=== PATIENT | male | born 1985 | race Caucasian/White ===

== ENCOUNTER 2018-05-10 08:17 | Emergency (ER) | payer OTHER ==
[~2018-05-10] VITALS: Ht 190.5 cm; Wt 95.9 kg
[2018-05-10] MEDS ORDERED: FLEXERIL PO (08:50)
[2018-05-10] MEDS ORDERED: TORADOL PO (08:50)
[2018-05-10 08:59] VITALS: BP 146/100
== END 2018-05-10 09:07 | disposition home or self-care (01) | DRG 605 ==
LOC: ED 08:17
DX: S30.0XXA Contusion of lower back and pelvis, initial encounter (principal); I10 Essential (primary) hypertension; I48.91 Unspecified atrial fibrillation; W22.8XXA Striking against or struck by other objects, initial encounter; Y92.009 Unspecified place in unspecified non-institutional (private) residence as the place of occurrence of the external cause

== ENCOUNTER 2018-05-14 06:41 | Emergency (ER) | payer OTHER ==
[~2018-05-14] VITALS: Ht 190.5 cm; Wt 95.5 kg
[~2018-05-14 06:41] MED LIST: FLEXERIL PO; TORADOL PO
[2018-05-14] MEDS ORDERED: TRAMADOL HCL50 MG PO (09:05)
[2018-05-14 09:10] VITALS: BP 140/88
== END 2018-05-14 09:15 | disposition home or self-care (01) | DRG 605 ==
LOC: ED 06:41
DX: S30.0XXA Contusion of lower back and pelvis, initial encounter (principal); I48.91 Unspecified atrial fibrillation; G89.29 Other chronic pain; M54.9 Dorsalgia, unspecified; F17.210 Nicotine dependence, cigarettes, uncomplicated; W22.8XXA Striking against or struck by other objects, initial encounter

== ENCOUNTER 2018-06-25 08:48 | Emergency (ER) | payer OTHER ==
[~2018-06-25] VITALS: Ht 190.5 cm; Wt 96.3 kg
[~2018-06-25 08:48] MED LIST changes: +TRAMADOL HCL50 MG PO
[2018-06-25 10:07] LABS: HEMATOCRIT 47.2 % (39.0-50.0); HEMOGLOBIN 15.7 g/dl (14.0-18.0); IMMATURE GRANULOCYTES 1.6 % (0.0-5.0); MEAN CELL VOLUME 89.2 fL CALC (80.0-100.0); MEAN CORPUSCULAR HGB 29.7 pG CALC (26.0-32.0); MEAN CORPUSCULAR HGB CONC 33.3 g/L CALC (32.0-36.0); NEUT# 6.46 thou/uL (1.82-7.42); RED BLOOD COUNT 5.29 mill/uL (4.70-6.10); RED CELL DISTRI WIDTH 12.9 % (11.5-15.5)
[2018-06-25 10:26] LABS: ALBUMIN 4.5 g/dL (3.2-5.0); ALKALINE PHOSPHATASE 90 u/l (38-126); ANION GAP 18 (6-22 (CALC)); BILIRUBIN, TOTAL 0.7 mg/dL (0.0-1.4); BUN 19 mg/dL (9-20); BUN/CREATININE RATIO 18 (12-20 (CALC)); CARBON DIOXIDE 23 mmol/l (22-30); CHLORIDE 107 mmol/l (95-108); GFR > 60 ML/MIN (>=60 (CALC)); GFR FOR AFR.AMER. > 60 ML/MIN (>=60 (CALC)); POTASSIUM 4.5 mmol/l (3.5-5.1); SGOT/AST 48 u/l (17-59); SGPT/ALT 125 u/l (21-72); SODIUM 143 mmol/l (137-146); TOTAL PROTEIN 7.2 g/dL (6.3-8.2)
[2018-06-25 12:54] LABS: URINE BILIRUBIN - DIPSTICK NEGATIVE (NEGATIVE); URINE BLOOD DIPSTICK NEGATIVE (NEGATIVE); URINE COLOR YELLOW; URINE GLUCOSE - DIPSTICK NEGATIVE (NEGATIVE); URINE KETONE NEGATIVE (NEGATIVE); URINE LEUK ESTERASE NEGATIVE (NEGATIVE); URINE NITRITE - DIPSTICK NEGATIVE (Negative); URINE PROTEIN - DIPSTICK NEGATIVE (NEG-TRACE); URINE SPECIFIC GRAVITY 1.025; URINE UROBILINOGEN - DIPSTICK 0.2 E.U./dL (0.2)
[2018-06-25 12:57] LABS: URINE CLARITY CLEAR
[2018-06-25 16:16] VITALS: BP 136/86
== END 2018-06-25 16:25 | disposition home or self-care (01) | DRG 392 ==
LOC: ED 08:48
PROVIDERS: Emergency Medicine
DX: R10.9 Unspecified abdominal pain (principal); I48.91 Unspecified atrial fibrillation; G89.29 Other chronic pain; M54.9 Dorsalgia, unspecified; F17.210 Nicotine dependence, cigarettes, uncomplicated; Z90.49 Acquired absence of other specified parts of digestive tract

== ENCOUNTER 2018-09-11 08:38 | Emergency (ER) | payer OTHER ==
[~2018-09-11] VITALS: Ht 190.5 cm; Wt 95.0 kg
[2018-09-11] MEDS ORDERED: DILANTIN100 MG PO (08:50)
[2018-09-11] MEDS ORDERED: METOPROL TAR25 MG PO (08:50)
[2018-09-11 09:10] VITALS: BP 157/112
[2018-09-11 09:50] LABS: HEMOGLOBIN 17.1 g/dl (14.0-18.0); IMMATURE GRANULOCYTES 1.5 % (0.0-5.0); MEAN CELL VOLUME 90.3 fL CALC (80.0-100.0); MEAN CORPUSCULAR HGB 30.3 pG CALC (26.0-32.0); MEAN CORPUSCULAR HGB CONC 33.5 g/L CALC (32.0-36.0); NEUT# 5.8 thou/uL (1.82-7.42); RED BLOOD COUNT 5.65 mill/uL (4.70-6.10); RED CELL DISTRI WIDTH 12.9 % (11.5-15.5)
[2018-09-11 09:51] LABS: ALBUMIN 4.6 g/dL (3.2-5.0); ALKALINE PHOSPHATASE 118 u/l (38-126); ANION GAP 15 (6-22 (CALC)); BILIRUBIN, TOTAL 0.8 mg/dL (0.0-1.4); BUN 14 mg/dL (9-20); BUN/CREATININE RATIO 12 (12-20 (CALC)); CARBON DIOXIDE 23 mmol/l (22-30); CHLORIDE 107 mmol/l (95-108); CREATININE 1.2 mg/dL (0.7-1.3); GFR > 60 ML/MIN (>=60 (CALC)); GFR FOR AFR.AMER. > 60 ML/MIN (>=60 (CALC)); POTASSIUM 4.3 mmol/l (3.5-5.1); SGOT/AST 75 u/l (17-59); SODIUM 140 mmol/l (137-146); TOTAL PROTEIN 8.1 g/dL (6.3-8.2)
[2018-09-11 10:02] LABS: INFLUENZA A NONE DETECTED (NONE DETECT); INFLUENZA B NONE DETECTED (NONE DETECT)
[2018-09-11] MEDS ORDERED: TESSALON PER100 MG PO (10:25)
[2018-09-11] MEDS ORDERED: MEDDOSEPAK PO (10:25)
[2018-09-11] MEDS ORDERED: ZITHROMAX250 MG PO (10:25)
== END 2018-09-11 10:40 | disposition home or self-care (01) | DRG 203 ==
LOC: ED 08:38
PROVIDERS: Emergency Medicine
DX: J40 Bronchitis, not specified as acute or chronic (principal); I48.91 Unspecified atrial fibrillation; F17.210 Nicotine dependence, cigarettes, uncomplicated

== ENCOUNTER 2018-10-19 14:02 | Emergency (ER) | payer OTHER ==
[~2018-10-19] VITALS: Ht 190.5 cm; Wt 90.9 kg
[~2018-10-19 14:02] MED LIST changes: +DILANTIN100 MG PO; +MEDDOSEPAK PO; +METOPROL TAR25 MG PO; +TESSALON PER100 MG PO; +ZITHROMAX250 MG PO
[2018-10-19 14:54] LABS: HEMATOCRIT 49.8 % (39.0-50.0); HEMOGLOBIN 16.8 g/dl (14.0-18.0); IMMATURE GRANULOCYTES 0.4 % (0.0-5.0); MEAN CELL VOLUME 89.6 fL CALC (80.0-100.0); MEAN CORPUSCULAR HGB 30.2 pG CALC (26.0-32.0); MEAN CORPUSCULAR HGB CONC 33.7 g/L CALC (32.0-36.0); NEUT# 6.76 thou/uL (1.82-7.42); RED BLOOD COUNT 5.56 mill/uL (4.70-6.10); RED CELL DISTRI WIDTH 11.6 % (11.5-15.5)
[2018-10-19 15:02] LABS: AMYLASE 69 u/l (30-110); LIPASE 41 u/l (23-300)
[2018-10-19 15:04] LABS: ALBUMIN 5.2 g/dL (3.2-5.0); ALKALINE PHOSPHATASE 124 u/l (38-126); ANION GAP 20 (6-22 (CALC)); BILIRUBIN, TOTAL 0.4 mg/dL (0.0-1.4); BUN 15 mg/dL (9-20); BUN/CREATININE RATIO 14 (12-20 (CALC)); CARBON DIOXIDE 25 mmol/l (22-30); CHLORIDE 104 mmol/l (95-108); CREATININE 1.1 mg/dL (0.7-1.3); GFR > 60 ML/MIN (>=60 (CALC)); GFR FOR AFR.AMER. > 60 ML/MIN (>=60 (CALC)); POTASSIUM 4.1 mmol/l (3.5-5.1); SGOT/AST 25 u/l (17-59); SODIUM 144 mmol/l (137-146); TOTAL PROTEIN 8.5 g/dL (6.3-8.2)
[2018-10-19 15:11] LABS: URINE BILIRUBIN - DIPSTICK NEGATIVE (NEGATIVE); URINE BLOOD DIPSTICK NEGATIVE (NEGATIVE); URINE COLOR YELLOW; URINE GLUCOSE - DIPSTICK NEGATIVE (NEGATIVE); URINE KETONE NEGATIVE (NEGATIVE); URINE LEUK ESTERASE NEGATIVE (NEGATIVE); URINE NITRITE - DIPSTICK NEGATIVE (Negative); URINE PH 5.5 (4.5-8.0); URINE PROTEIN - DIPSTICK NEGATIVE (NEG-TRACE); URINE UROBILINOGEN - DIPSTICK 0.2 E.U./dL (0.2)
[2018-10-19 15:11] LABS: PHENYTOIN (DILANTIN) 13 ug/mL (10 - 20)
[2018-10-19 15:13] LABS: MYOGLOBIN 42 ng/mL (0 - 121)
[2018-10-19 15:21] LABS: BARBITURATES POSITIVE (NEGATIVE); COCAINE NEGATIVE (NEGATIVE); METHADONE NEGATIVE (NEGATIVE); OXCYCODONE NEGATIVE (NEGATIVE); TETRAHYDROCANNABIONOL NEGATIVE (NEGATIVE); TRICYLIC ANTIDEPRESSANTS NEGATIVE (NEGATIVE)
[2018-10-19] MEDS ORDERED: ZOFRAN ODT4 MG PO (15:24)
[2018-10-19] MEDS ORDERED: NAPROSYN500 MG PO (15:27)
[2018-10-19 15:55] VITALS: BP 143/99
== END 2018-10-19 15:56 | disposition home or self-care (01) | DRG 101 ==
LOC: ED 14:02
PROVIDERS: Emergency Medicine
DX: R56.9 Unspecified convulsions (principal); R11.10 Vomiting, unspecified; Z87.820 Personal history of traumatic brain injury; W22.8XXA Striking against or struck by other objects, initial encounter; Y92.009 Unspecified place in unspecified non-institutional (private) residence as the place of occurrence of the external cause

== ENCOUNTER 2018-11-18 07:52 | Emergency (ER) | payer SELFPAY ==
[~2018-11-18] VITALS: Ht 190.5 cm; Wt 100.0 kg
[~2018-11-18 07:52] MED LIST changes: +NAPROSYN500 MG PO; +ZOFRAN ODT4 MG PO
[2018-11-18 08:37] LABS: HEMATOCRIT 47.2 % (39.0-50.0); HEMOGLOBIN 15.9 g/dl (14.0-18.0); IMMATURE GRANULOCYTES 0.4 % (0.0-5.0); MEAN CELL VOLUME 88.4 fL CALC (80.0-100.0); MEAN CORPUSCULAR HGB 29.8 pG CALC (26.0-32.0); MEAN CORPUSCULAR HGB CONC 33.7 g/L CALC (32.0-36.0); NEUT# 5.54 thou/uL (1.82-7.42); RED BLOOD COUNT 5.34 mill/uL (4.70-6.10); RED CELL DISTRI WIDTH 11.8 % (11.5-15.5)
[2018-11-18 08:37] LABS: URINE BLOOD DIPSTICK TRACE-LYSED (NEGATIVE); URINE COLOR YELLOW; URINE GLUCOSE - DIPSTICK NEGATIVE (NEGATIVE); URINE KETONE TRACE mg/dL (NEGATIVE); URINE LEUK ESTERASE NEGATIVE (NEGATIVE); URINE PROTEIN - DIPSTICK 30 mg/dL (NEG-TRACE); URINE SPECIFIC GRAVITY 1.025; URINE UROBILINOGEN - DIPSTICK 0.2 E.U./dL (0.2)
[2018-11-18 08:48] LABS: URINE BILIRUBIN - DIPSTICK NEGATIVE (NEGATIVE); URINE NITRITE - DIPSTICK NEGATIVE (Negative)
[2018-11-18 08:53] LABS: ALKALINE PHOSPHATASE 138 u/l (38-126); ANION GAP 18 (6-22 (CALC)); BILIRUBIN, TOTAL 0.5 mg/dL (0.0-1.4); BUN 21 mg/dL (9-20); BUN/CREATININE RATIO 19 (12-20 (CALC)); CARBON DIOXIDE 27 mmol/l (22-30); CHLORIDE 102 mmol/l (95-108); CREATININE 1.1 mg/dL (0.7-1.3); GFR > 60 ML/MIN (>=60 (CALC)); GFR FOR AFR.AMER. > 60 ML/MIN (>=60 (CALC)); POTASSIUM 4.9 mmol/l (3.5-5.1); SODIUM 142 mmol/l (137-146); TOTAL PROTEIN 8.1 g/dL (6.3-8.2)
[2018-11-18 08:53] LABS: URINE EPITHELIAL CELLS RARE EPI/hpf (0-FEW); URINE RBC 0-2 RBC/hpf (0-5)
[2018-11-18 08:54] LABS: URINE SPERM RARE hpf (NONE-RARE)
[2018-11-18 08:54] LABS: SGOT/AST 45 u/l (17-59)
[2018-11-18 09:01] LABS: BARBITURATES NEGATIVE (NEGATIVE); COCAINE NEGATIVE (NEGATIVE); METHADONE NEGATIVE (NEGATIVE); TETRAHYDROCANNABIONOL NEGATIVE (NEGATIVE); TRICYLIC ANTIDEPRESSANTS NEGATIVE (NEGATIVE)
[2018-11-18 09:02] LABS: OXCYCODONE NEGATIVE (NEGATIVE)
[2018-11-18] MEDS ORDERED: TORADOL PO (09:53)
[2018-11-18 10:09] VITALS: BP 144/86
== END 2018-11-18 10:19 | disposition home or self-care (01) | DRG 93 ==
LOC: ED 07:52
PROVIDERS: Emergency Medicine
DX: G89.29 Other chronic pain (principal); M53.3 Sacrococcygeal disorders, not elsewhere classified; I48.91 Unspecified atrial fibrillation; Z86.73 Personal history of transient ischemic attack (TIA), and cerebral infarction without residual deficits; Z79.891 Long term (current) use of opiate analgesic

== ENCOUNTER 2019-02-15 08:20 | Emergency (ER) | payer SELFPAY ==
[~2019-02-15] VITALS: Ht 190.5 cm; Wt 90.0 kg
[2019-02-15] MEDS ORDERED: ROBITUSSIN AC10 ML PO (09:07)
[2019-02-15] MEDS ORDERED: ZPAK PO (09:07)
[2019-02-15 09:30] VITALS: BP 138/61
== END 2019-02-15 09:34 | disposition home or self-care (01) | DRG 153 ==
LOC: ED 08:20
DX: J06.9 Acute upper respiratory infection, unspecified (principal)

== ENCOUNTER 2019-07-29 02:17 | Emergency (ER) | payer SELFPAY ==
[~2019-07-29] VITALS: Ht 190.5 cm; Wt 96.3 kg
[~2019-07-29 02:17] MED LIST changes: +ROBITUSSIN AC10 ML PO; +ZPAK PO
[2019-07-29] MEDS ORDERED: IBUPROFEN600 MG PO (03:39)
[2019-07-29 04:45] VITALS: BP 147/91
== END 2019-07-29 04:45 | disposition home or self-care (01) | DRG 605 ==
LOC: ED 02:17
DX: S30.0XXA Contusion of lower back and pelvis, initial encounter (principal); I48.91 Unspecified atrial fibrillation; M54.9 Dorsalgia, unspecified; G89.29 Other chronic pain; F17.210 Nicotine dependence, cigarettes, uncomplicated; W10.9XXA Fall (on) (from) unspecified stairs and steps, initial encounter; Y92.009 Unspecified place in unspecified non-institutional (private) residence as the place of occurrence of the external cause; Z86.73 Personal history of transient ischemic attack (TIA), and cerebral infarction without residual deficits

== ENCOUNTER 2019-10-19 03:29 | Emergency (ER) | payer SELFPAY ==
[~2019-10-19] VITALS: Ht 190.5 cm; Wt 96.0 kg
[~2019-10-19 03:29] MED LIST changes: +IBUPROFEN600 MG PO
[2019-10-19] MEDS ORDERED: KEFLEX500 M1 PO (04:59)
[2019-10-19] MEDS ORDERED: PERCOCET 5/325M1 TAB PO (04:59)
[2019-10-19 05:31] VITALS: BP 149/84
== END 2019-10-19 05:30 | disposition home or self-care (01) | DRG 605 ==
LOC: ED 03:29
DX: S61.212A Laceration without foreign body of right middle finger without damage to nail, initial encounter (principal); I48.91 Unspecified atrial fibrillation; F17.210 Nicotine dependence, cigarettes, uncomplicated; W27.5XXA Contact with paper-cutter, initial encounter; Y93.89 Activity, other specified; Y92.89 Other specified places as the place of occurrence of the external cause; Y99.0 Civilian activity done for income or pay

== ENCOUNTER 2019-10-24 03:44 | Emergency (ER) | payer SELFPAY ==
[~2019-10-24] VITALS: Ht 190.5 cm; Wt 95.5 kg
[~2019-10-24 03:44] MED LIST changes: +KEFLEX500 M1 PO; +PERCOCET 5/325M1 TAB PO
[2019-10-24] MEDS ORDERED: BACTRIM DS1 TAB PO (04:14)
[2019-10-24 04:21] VITALS: BP 138/90
== END 2019-10-24 04:21 | disposition home or self-care (01) | DRG 950 ==
LOC: ED 03:44
DX: S61.312D Laceration without foreign body of right middle finger with damage to nail, subsequent encounter (principal); W45.8XXD Other foreign body or object entering through skin, subsequent encounter

== ENCOUNTER 2020-05-05 03:16 | Emergency (ER) | payer SELFPAY ==
[~2020-05-05] VITALS: Ht 190.5 cm; Wt 95.5 kg
[~2020-05-05 03:16] MED LIST changes: +BACTRIM DS1 TAB PO
[2020-05-05] MEDS ORDERED: PREDNISONE50 MG PO (04:27)
[2020-05-05] MEDS ORDERED: VOLTAREN - GENE75 MG PO (04:27)
[2020-05-05] MEDS ORDERED: ORPHENADRINE100 MG PO (04:27)
[2020-05-05 04:35] VITALS: BP 156/89
== END 2020-05-05 04:57 | disposition home or self-care (01) | DRG 552 ==
LOC: ED 03:16
DX: M54.5 Low back pain (principal); G89.29 Other chronic pain; I48.91 Unspecified atrial fibrillation; F17.200 Nicotine dependence, unspecified, uncomplicated